=== PATIENT | female | born 1960 | race Caucasian/White ===

== ENCOUNTER 2021-12-07 08:05 | Observation (INO) ==
[2021-12-07] MEDS ORDERED: Albuterol HFA INHALER 8 gm MDI INH ONE (08:15)
[2021-12-07] MEDS ORDERED: methylPREDNISolone SOD SUCC 125 mg 2 ML VIAL IV ONE (08:15)
[2021-12-07 08:55] LABS: ABS Lymphocytes 0.6 10^3/ul (1.0-4.8); ABS Monocytes 0.6 10^3/ul (0-0.8); ABS Neutrophils 12.3 10^3/ul (1.5-7.7); Eosinophil % 0.3 %; Hematocrit 45 % (35-47); Hemoglobin 14.9 g/dL (12.0-16.0); Lymphocyte % 4.1 %; Mean Corpuscular HGB Conc 33 g/dL (31-36); Mean Corpuscular Hemoglobin 31 pg (27-31); Mean Corpuscular Volume 93 fL (80-97); Mean Platelet Volume 8.4 fL (7.4-10.4); Platelet Count 219 10^3/uL (150-450); Red Cell Distribution Width 14 % (10-15); White Blood Count 13.6 10^3/uL (3.5-10.8)
[2021-12-07] MEDS ORDERED: Albuterol/Ipratropium NEB.SOL (2.5/0.5 MG) 3 ML NEB.SOLN INH ONE (09:25)
[2021-12-07] MEDS ORDERED: Albuterol 0.5% CONC CONTINUOUS NEB.SOL 5 mg/ml 20 ml BOT INH ONE (09:26)
[2021-12-07 09:31] LABS: Albumin 4.2 g/dL (3.2-5.2); Calcium 9.1 mg/dL (8.6-10.3); Globulin 2.1 g/dL (2-4); Potassium 4.1 mmol/L (3.5-5.0); Total Bilirubin 0.5 mg/dL (0.2-1.0); Total Protein 6.3 g/dL (6.4-8.9); eGFR CKD-EPI 97.8 (>60)
[2021-12-07 09:42] LABS: INR 1.82 (0.86-1.15)
[2021-12-07 10:18] LABS: High Sensitivity Troponin 1 Hr 10 pg/mL (<15)
[2021-12-07] MEDS ORDERED: Albuterol 2.5mg/3 ml (0.083%) NEB.SOLN INH PRN (12:15)
[2021-12-07] MEDS ORDERED: Albuterol/Ipratropium NEB.SOL (2.5/0.5 MG) 3 ML NEB.SOLN INH PRN ×2 (12:18→21:22)
[2021-12-07] MEDS ORDERED: Ondansetron 4 mg VIAL 2 MG/ML 2 ml VIAL IV PRN (12:20)
[2021-12-07] MEDS: Mometasone/Formoter 200/5 MDI INH SCH (18:01)
[2021-12-07] MEDS: Albuterol/Ipratropium NEB.SOL (2.5/0.5 MG) 3 ML NEB.SOLN INH SCH (23:44)
[2021-12-08] MEDS: Albuterol/Ipratropium NEB.SOL (2.5/0.5 MG) 3 ML NEB.SOLN INH SCH ×3 (03:00→11:42)
[2021-12-08 03:47] VITALS: BP 113/58
[2021-12-08 05:33] LABS: ABS Eosinophils 0.1 10^3/ul (0-0.6); ABS Neutrophils 7.9 10^3/ul (1.5-7.7); Eosinophil % 0.8 %; Hematocrit 40 % (35-47); Hemoglobin 13.7 g/dL (12.0-16.0); Lymphocyte % 10.1 %; Mean Corpuscular HGB Conc 34 g/dL (31-36); Mean Corpuscular Hemoglobin 32 pg (27-31); Mean Corpuscular Volume 93 fL (80-97); Mean Platelet Volume 8.7 fL (7.4-10.4); Platelet Count 204 10^3/uL (150-450); Red Blood Count 4.34 10^6 /uL (3.70-4.87); Red Cell Distribution Width 15 % (10-15); White Blood Count 10.1 10^3/uL (3.5-10.8)
[2021-12-08 05:43] LABS: INR 2.11 (0.86-1.15)
[2021-12-08 05:58] LABS: Calcium 9.2 mg/dL (8.6-10.3); Potassium 4.4 mmol/L (3.5-5.0); eGFR CKD-EPI 89.4 (>60)
[2021-12-08] MEDS: Mometasone/Formoter 200/5 MDI INH SCH (07:30)
[2021-12-08] MEDS ORDERED: Aspirin EC 81 mg TAB.EC (enteric coated) PO SCH (09:00)
== END 2021-12-08 11:45 | disposition home or self-care (01) ==
LOC: ED 08:05 → EDHOLD 08:05 → MED 16:13
PROVIDERS: ADMIT Hospitalist; ATTEND Hospitalist

== ENCOUNTER 2024-06-07 18:41 | Inpatient (IN) ==
[2024-06-07] MEDS ORDERED: Albuterol 2.5mg/3 ml (0.083%) NEB.SOLN INH ONE (18:49)
[2024-06-07] MEDS: Albuterol 2.5mg/3 ml (0.083%) NEB.SOLN INH ONE (19:11)
[2024-06-07 19:12] LABS: ABS Lymphocytes 0.5 10^3/uL (1.0-4.8); ABS Monocytes 0.4 10^3/uL (0.0-0.9); ABS Neutrophils 7.9 10^3/uL (1.5-7.6); Eosinophil % 0.1 %; Hematocrit 41.5 % (35-45); Lymphocyte % 6.2 %; Mean Corpuscular Hemoglobin 31.3 pg (27-33); Mean Corpuscular Hgb Conc 33.7 g/dL (31-36); Mean Corpuscular Volume 93.1 fL (80-97); Mean Platelet Volume 9.7 fL (7.5-11.2); Platelet Count 145 10^3/uL (150-450); Red Blood Count 4.46 10^6/uL (3.63-4.92); Red Cell Distribution Width 14.4 % (12-17); White Blood Count 8.8 10^3/uL (3.8-11.8)
[2024-06-07 19:53] LABS: Albumin 4.1 g/dL (3.5-5.7); Calcium 8.9 mg/dL (8.6-10.3); Creatinine, Serum 0.61 mg/dL (0.51-0.95); Globulin 2.1 g/dL (2-4); Potassium 3.8 mmol/L (3.5-5.0); Total Bilirubin 0.3 mg/dL (0.2-1.0); Total Protein 6.2 g/dL (6.4-8.9); eGFR CKD-EPI 99.2 (>60)
[2024-06-07 22:16] LABS: PCO2 Arterial 46 mmHg (35-45); PO2 Arterial 137 mmHg (80-100)
[2024-06-07] MEDS ORDERED: Albuterol/Ipratropium NEB.SOL (2.5/0.5 MG) 3 ML NEB.SOLN INH PRN (22:24)
[2024-06-07] MEDS ORDERED: Azithromycin 500 mg/250 ml NS 500 MG/250 ML BAG IVPB SCH (23:00)
[2024-06-08] MEDS: cefTRIAXone 1 gm/50 mL D5W 1 GM/50 ML BAG IV SCH (00:16)
[2024-06-08] MEDS: methylPREDNISolone SOD SUCC 40 mg/ml 1 ml VIAL IV SCH (01:00)
[2024-06-08] MEDS: Albuterol/Ipratropium NEB.SOL (2.5/0.5 MG) 3 ML NEB.SOLN INH SCH (04:08)
[2024-06-08 05:49] LABS: ABS Lymphocytes 0.3 10^3/uL (1.0-4.8); ABS Monocytes 0.1 10^3/uL (0.0-0.9); ABS Neutrophils 5.6 10^3/uL (1.5-7.6); Hematocrit 39.1 % (35-45); Hemoglobin 13.2 g/dL (11.5-14.3); Lymphocyte % 5.3 %; Mean Corpuscular Hemoglobin 31.5 pg (27-33); Mean Corpuscular Hgb Conc 33.8 g/dL (31-36); Mean Corpuscular Volume 93.3 fL (80-97); Mean Platelet Volume 10.1 fL (7.5-11.2); Platelet Count 135 10^3/uL (150-450); Red Blood Count 4.19 10^6/uL (3.63-4.92); Red Cell Distribution Width 14.6 % (12-17)
[2024-06-08 06:15] LABS: INR 5.07 (0.85-1.14)
[2024-06-08 06:17] LABS: Calcium 9.1 mg/dL (8.6-10.3); Creatinine, Serum 0.67 mg/dL (0.51-0.95); Magnesium 2.4 mg/dL (1.9-2.7); Phosphorus 4.5 mg/dL (2.5-5.0); Potassium 4.1 mmol/L (3.5-5.0); eGFR CKD-EPI 96.9 (>60)
[2024-06-08] MEDS: CMC:FLUTICAS/UMECLI/VILANT 200-62.5-25 MDI (NF) INH SCH (07:11)
[2024-06-08] MEDS: Aspirin EC 81 mg TAB.EC (enteric coated) PO SCH (09:17)
[2024-06-08] MEDS: Albuterol/Ipratropium NEB.SOL (2.5/0.5 MG) 3 ML NEB.SOLN INH PRN (13:27)
[2024-06-08] MEDS: Warfarin per PHARMACY **NOTE FOLLOW UP SCH (15:23)
[2024-06-08] MEDS: Warfarin DAILY REMINDER **NOTE FOLLOW UP SCH (15:23)
[2024-06-08] MEDS: Warfarin - No Order Today **NOTE FOLLOW UP ONE (15:23)
[2024-06-08] MEDS: CMC:Simvastatin 20 mg TAB (NF) PO SCH (21:28)
[2024-06-09 06:23] LABS: ABS Lymphocytes 0.7 10^3/uL (1.0-4.8); ABS Monocytes 0.4 10^3/uL (0.0-0.9); ABS Neutrophils 8.9 10^3/uL (1.5-7.6); Hematocrit 38.6 % (35-45); Hemoglobin 13.1 g/dL (11.5-14.3); Lymphocyte % 6.7 %; Mean Corpuscular Hemoglobin 31.4 pg (27-33); Mean Corpuscular Hgb Conc 33.9 g/dL (31-36); Mean Corpuscular Volume 92.8 fL (80-97); Mean Platelet Volume 9.6 fL (7.5-11.2); Platelet Count 150 10^3/uL (150-450); Red Blood Count 4.16 10^6/uL (3.63-4.92); Red Cell Distribution Width 14.3 % (12-17); White Blood Count 9.9 10^3/uL (3.8-11.8)
[2024-06-09 06:24] LABS: INR 4.84 (0.85-1.14)
[2024-06-09 06:37] LABS: Calcium 8.7 mg/dL (8.6-10.3); Creatinine, Serum 0.54 mg/dL (0.51-0.95); Potassium 4.3 mmol/L (3.5-5.0); eGFR CKD-EPI 102.1 (>60)
[2024-06-09] MEDS: Albuterol/Ipratropium NEB.SOL (2.5/0.5 MG) 3 ML NEB.SOLN INH SCH ×2 (11:02→21:06)
[2024-06-09] MEDS: Benzocaine/Menthol LOZ PO PRN (15:13)
[2024-06-09] MEDS: methylPREDNISolone SOD SUCC 40 mg/ml 1 ml VIAL IV SCH (17:20)
[2024-06-09] MEDS ORDERED: Benzocaine/Menthol Pain Spray - BTL 78 GM TOPICAL PRN (17:21)
[2024-06-09] MEDS: Warfarin - No Order Today **NOTE FOLLOW UP ONE (17:49)
[2024-06-09] MEDS: Phenol 1.4% Throat Spray BTL TOPICAL PRN (23:29)
[2024-06-10 06:35] LABS: Hematocrit 38.8 % (35-45); Mean Corpuscular Hemoglobin 31.1 pg (27-33); Mean Corpuscular Hgb Conc 33.6 g/dL (31-36); Mean Corpuscular Volume 92.8 fL (80-97); Mean Platelet Volume 8.9 fL (7.5-11.2); Platelet Count 171 10^3/uL (150-450); Red Blood Count 4.18 10^6/uL (3.63-4.92); White Blood Count 10.7 10^3/uL (3.8-11.8)
[2024-06-10 07:02] LABS: INR 2.4 (0.85-1.14)
[2024-06-10 07:48] LABS: Calcium 8.9 mg/dL (8.6-10.3); Creatinine, Serum 0.63 mg/dL (0.51-0.95); Potassium 4.8 mmol/L (3.5-5.0); eGFR CKD-EPI 98.4 (>60)
[2024-06-10 09:48] LABS: PCO2 Arterial 54 mmHg (35-45); PO2 Arterial 65 mmHg (80-100)
[2024-06-10] MEDS: Phenol 1.4% Throat Spray BTL TOPICAL SCH (10:05)
[2024-06-10] MEDS ORDERED: Albuterol 2.5mg/3 ml (0.083%) NEB.SOLN INH PRN (10:32)
[2024-06-10] MEDS: Albuterol/Ipratropium NEB.SOL (2.5/0.5 MG) 3 ML NEB.SOLN INH SCH (11:49)
[2024-06-10] MEDS: Benzocaine/Menthol LOZ PO SCH ×2 (12:19→14:40)
[2024-06-10] MEDS: methylPREDNISolone SOD SUCC 40 mg/ml 1 ml VIAL IV ONE (16:00)
[2024-06-11] MEDS: Senna TAB 8.6 mg TAB PO SCH (01:59)
[2024-06-11 05:59] LABS: INR 1.43 (0.85-1.14)
[2024-06-11 06:20] LABS: Albumin 3.7 g/dL (3.5-5.7); Albumin/Globulin Ratio 1.9 (1-3); Calcium 9.3 mg/dL (8.6-10.3); Creatinine, Serum 0.56 mg/dL (0.51-0.95); Globulin 1.9 g/dL (2-4); Potassium 4.2 mmol/L (3.5-5.0); Total Bilirubin 0.2 mg/dL (0.2-1.0); Total Protein 5.6 g/dL (6.4-8.9); eGFR CKD-EPI 101.2 (>60)
[2024-06-11] MEDS: Polyethylene Glycol 3350 17 GM PACKET PO SCH (08:57)
[2024-06-11] MEDS: methylPREDNISolone SOD SUCC 40 mg/ml 1 ml VIAL IV SCH ×2 (08:57→16:37)
[2024-06-11] MEDS: Albuterol 2.5mg/3 ml (0.083%) NEB.SOLN INH SCH (13:39)
[2024-06-11 14:10] VITALS: BP 112/69
[2024-06-11] MEDS ORDERED: Magnesium Hydroxide LIQ 30 ML UDC PO PRN (15:05)
[2024-06-11] MEDS: cefTRIAXone 1 gm/50 mL D5W 1 GM/50 ML BAG IV SCH (16:33)
== END 2024-06-11 17:55 | disposition home or self-care (01) | DRG 190 ==
LOC: ED 18:41 → SUATTDRO 22:15 → EDHOLD 22:15 → ICU 22:47 → MED 06-08 11:19
PROVIDERS: ADMIT Hospitalist; ATTEND Internal Medicine